=== PATIENT | female | born 1970 | race African-American/Black ===

== ENCOUNTER 2019-01-02 20:07 | Emergency (ER) | payer MEDICAID ==
[~2019-01-02] VITALS: Ht 162.6 cm; Wt 59.0 kg
[2019-01-02 20:12] VITALS: BP 158/90
== END 2019-01-02 22:38 | disposition left against medical advice (07) ==
LOC: ER 20:07
DX: Z53.21 Procedure and treatment not carried out due to patient leaving prior to being seen by health care provider (principal)

== ENCOUNTER 2019-06-12 10:13 | Inpatient (IN) | payer MEDICAID ==
[~2019-06-12] VITALS: Ht 160 cm; Wt 49.9 kg
[2019-06-12] MEDS ORDERED: ASPIRIN 81MG TABLET PO ONE (10:30)
[2019-06-12 11:39] LABS: BASOPHILS % 0.9 % (0.0-2.0); HEMATOCRIT. 38.6 % (36.0-48.0); HEMOGLOBIN. 13.3 g/dL (12.0-16.0); LYMPHOCYTES % 21.2 % (20.0-50.0); MEAN CORPUSCULAR HEMOGLOBIN 35.1 pg (28.0-32.0); MEAN CORPUSCULAR VOLUME 101.8 fL (81.0-99.0); NEUTROPHILS % 65.9 % (40.0-76.0); PLATELET 243 x1000/uL (130-400); RED BLOOD CELL COUNT 3.79 mill/uL (4.2-5.4); RED CELL DISTRIBUTION WIDTH 14.6 % (11.6-14.6)
[2019-06-12 11:42] LABS: CHLORIDE 105 mEq/L (98-107)
[2019-06-12] MEDS: NITROGLYCERIN 0.4MG TABLET SL SL PRN ×2 (11:45→12:35)
[2019-06-12 11:46] LABS: ETHANOL BLOOD < 10 mg/dL
[2019-06-12] MEDS ORDERED: NITROGLYCERIN 0.1MG/HR PATCH TOP ONE (12:45)
[2019-06-12] MEDS ORDERED: ENOXAPARIN 60MG/0.6ML SYR SUBCUT ONE (12:45)
[2019-06-12] MEDS ORDERED: DICYCLOMINE 10 MG/5 ML ORAL SYR PO STA (14:51)
[2019-06-12] MEDS ORDERED: MAGNESIUM/ALUMINUM HYDROXIDE/SIMETHICONE 30ML UDC PO STA (14:51)
[2019-06-12] MEDS ORDERED: VISCOUS LIDOCAINE 2% 15 ML UDC PO STA (14:51)
[2019-06-12] MEDS ORDERED: GUAIFENESIN 200MG/10ML SUGAR FREE UDC PO PRN (15:15)
[2019-06-12] MEDS ORDERED: ONDANSETRON HCL 4MG/2ML INJ IV PRN (15:15)
[2019-06-12] MEDS ORDERED: CLONIDINE 0.1MG TABLET PO PRN (15:15)
[2019-06-12] MEDS ORDERED: ACETAMINOPHEN 325MG TABLET PO PRN ×2 (15:15)
[2019-06-12] MEDS ORDERED: IPRATROPIUM/ALBUTEROL 0.5-3(2.5)MG/3ML NEB NEB PRN (15:15)
[2019-06-12] MEDS ORDERED: MAGNESIUM/ALUMINUM HYDROXIDE/SIMETHICONE 30ML UDC PO PRN (15:15)
[2019-06-12] MEDS ORDERED: NITROGLYCERIN 0.4MG TABLET SL SL PRN (15:15)
[2019-06-12] MEDS ORDERED: LORAZEPAM 0.5MG TABLET PO PRN (15:15)
[2019-06-12] MEDS ORDERED: DOCUSATE SODIUM 100MG CAPSULE PO PRN (15:15)
[2019-06-12] MEDS ORDERED: ENOXAPARIN 40MG/0.4ML SYR SUBCUT SCH (15:15)
[2019-06-12] MEDS: KETOROLAC 15MG/ML VIAL IV PRN (18:34)
[2019-06-12 23:07] LABS: CREATINE KINASE MB FRACTION 20.9 ng/mL (0.5-3.6)
[2019-06-12 23:49] LABS: *AMPHETAMINES SCREEN URINE NEGATIVE (NEGATIVE); *BARBITURATES SCREEN URINE NEGATIVE (NEGATIVE); *BENZODIAZEPINES SCREEN URINE NEGATIVE (NEGATIVE); METHADONE URINE SCREEN NEGATIVE (NEGATIVE); OPIATES URINE SCREEN NEGATIVE (NEGATIVE)
[2019-06-12 23:58] LABS: *COCAINE SCREEN URINE PRESUMTIVE POSITIVE (NEGATIVE); CANNABINOID URINE SCREEN PRESUMTIVE POSITIVE (NEGATIVE); PHENCYCLIDINE URINE SCREEN PRESUMTIVE POSITIVE (NEGATIVE)
[2019-06-13] MEDS: FAMOTIDINE 20MG TABLET PO SCH ×3 (00:26→20:25)
[2019-06-13] MEDS: ZOLPIDEM TARTRATE 5MG TABLET PO PRN ×2 (02:02→20:25)
[2019-06-13] MEDS: KETOROLAC 15MG/ML VIAL IV PRN (02:03)
[2019-06-13 09:40] LABS: CREATINE KINASE MB FRACTION 18.1 ng/mL (0.5-3.6)
[2019-06-13] MEDS ORDERED: ENOXAPARIN 60MG/0.6ML SYR SUBCUT NR (11:00)
[2019-06-13 13:52] VITALS: BP 166/88
[2019-06-13 13:56] VITALS: BP 166/88
[2019-06-13 16:00] VITALS: BP 121/66
[2019-06-13] MEDS: LISINOPRIL 20MG TABLET PO SCH ×2 (16:00→20:25)
[2019-06-13] MEDS: ASPIRIN 325MG EC TABLET PO SCH (16:00)
[2019-06-13] MEDS: AMLODIPINE 10MG TABLET PO SCH (16:00)
[2019-06-13] MEDS: NITROGLYCERIN OINT 1GM/INCH UDPKT TD SCH ×3 (16:01→23:10)
[2019-06-13] MEDS: ENOXAPARIN 60MG/0.6ML SYR SUBCUT SCH ×2 (16:02→23:10)
[2019-06-13 18:00] VITALS: BP 136/66
[2019-06-13 20:00] VITALS: BP 128/76
[2019-06-13] MEDS ORDERED: ATORVASTATIN CALCIUM 10MG TABLET PO SCH ×2 (21:00)
[2019-06-13 22:00] VITALS: BP 135/84
[2019-06-14] VITALS (8 sets, daily range): BP systolic 111–143; BP diastolic 70–91
[2019-06-14] MEDS: NITROGLYCERIN OINT 1GM/INCH UDPKT TD SCH (04:20)
[2019-06-14 06:48] LABS: BASOPHILS % 0.9 % (0.0-2.0); EOSINOPHILS % 1.7 % (0.0-5.0); HEMATOCRIT. 37.5 % (36.0-48.0); LYMPHOCYTES % 26.1 % (20.0-50.0); MEAN CORPUSCULAR HEMOGLOBIN 35.1 pg (28.0-32.0); MEAN CORPUSCULAR VOLUME 101.5 fL (81.0-99.0); MONOCYTES % 10.6 % (2.0-8.0); NEUTROPHILS % 60.7 % (40.0-76.0); PLATELET 249 x1000/uL (130-400); RED BLOOD CELL COUNT 3.69 mill/uL (4.2-5.4); RED CELL DISTRIBUTION WIDTH 13.9 % (11.6-14.6)
[2019-06-14 06:56] LABS: CHLORIDE 103 mEq/L (98-107)
[2019-06-14 07:04] LABS: CREATINE KINASE 111 IU/L (26-192)
[2019-06-14 07:07] LABS: CREATINE KINASE MB FRACTION 3.8 ng/mL (0.5-3.6)
[2019-06-14] MEDS: ASPIRIN 325MG EC TABLET PO SCH (08:56)
[2019-06-14] MEDS: AMLODIPINE 10MG TABLET PO SCH (08:56)
[2019-06-14] MEDS: FAMOTIDINE 20MG TABLET PO SCH (08:57)
[2019-06-14] MEDS: LISINOPRIL 20MG TABLET PO SCH (08:57)
[2019-06-14] MEDS: KETOROLAC 15MG/ML VIAL IV PRN (10:54)
[2019-06-14] MEDS ORDERED: SUCRALFATE 1 G/10 ML UDC PO SCH (11:50)
== END 2019-06-14 13:50 | disposition home or self-care (01) | DRG 816 ==
LOC: ER 10:22 → 3WST 14:15 → ENRESERV 06-13 07:07 → CANRESERV 06-13 07:07 → EDBEDREQSVC 06-13 10:32 → ENRESERV 06-13 11:29 → 3WST 06-13 13:50
PROVIDERS: ADMIT Internal Medicine; ATTEND Internal Medicine
DX: T40.5X1A Poisoning by cocaine, accidental (unintentional), initial encounter (principal); I21.4 Non-ST elevation (NSTEMI) myocardial infarction; E44.1 Mild protein-calorie malnutrition; E87.1 Hypo-osmolality and hyponatremia; I20.1 Angina pectoris with documented spasm; I11.0 Hypertensive heart disease with heart failure; I50.30 Unspecified diastolic (congestive) heart failure; F14.10 Cocaine abuse, uncomplicated; F10.10 Alcohol abuse, uncomplicated; F16.10 Hallucinogen abuse, uncomplicated; F32.9 Major depressive disorder, single episode, unspecified; Z79.899 Other long term (current) drug therapy; Z91.11 Patient's noncompliance with dietary regimen; Z91.14 Patient's other noncompliance with medication regimen; Y92.89 Other specified places as the place of occurrence of the external cause; Z71.41 Alcohol abuse counseling and surveillance of alcoholic
CPT/HCPCS: 36415; 71045; 80053; 80061; 80305; 80320; 82550; 82553; 83036; 83735; 83880; 84443; 84484; 85025; 85379; 93005; 93306; 93970; 99291; J1650; J1885; J2405; G0480

== ENCOUNTER 2019-09-06 08:56 | Inpatient (IN) | payer MEDICAID ==
[~2019-09-06] VITALS: Ht 160 cm; Wt 49.9 kg
[2019-09-06] MEDS ORDERED: MORPHINE SULFATE 4 MG/ML CPJ (NOT FOR IM USE) IV ONE (09:30)
[2019-09-06 09:46] LABS: BASOPHILS % 0.7 % (0.0-2.0); EOSINOPHILS % 1.6 % (0.0-5.0); HEMATOCRIT. 36.4 % (36.0-48.0); HEMOGLOBIN. 12.7 g/dL (12.0-16.0); MEAN CORPUSCULAR HEMOGLOBIN 35.3 pg (28.0-32.0); MEAN CORPUSCULAR VOLUME 101.1 fL (81.0-99.0); MONOCYTES % 10.9 % (2.0-8.0); NEUTROPHILS % 62.8 % (40.0-76.0); PLATELET 328 x1000/uL (130-400); RED CELL DISTRIBUTION WIDTH 14.9 % (11.6-14.6)
[2019-09-06 09:56] LABS: CHLORIDE 102 mEq/L (98-107)
[2019-09-06 10:06] LABS: HCG SCREEN NEGATIVE
[2019-09-06 13:10] LABS: *BENZODIAZEPINES SCREEN URINE NEGATIVE (NEGATIVE); METHADONE URINE SCREEN NEGATIVE (NEGATIVE); OPIATES URINE SCREEN NEGATIVE (NEGATIVE)
[2019-09-06 13:11] LABS: *BARBITURATES SCREEN URINE NEGATIVE (NEGATIVE)
[2019-09-06 13:12] LABS: *AMPHETAMINES SCREEN URINE NEGATIVE (NEGATIVE)
[2019-09-06 13:15] LABS: *COCAINE SCREEN URINE PRESUMTIVE POSITIVE (NEGATIVE); CANNABINOID URINE SCREEN PRESUMTIVE POSITIVE (NEGATIVE); PHENCYCLIDINE URINE SCREEN PRESUMTIVE POSITIVE (NEGATIVE)
[2019-09-06] MEDS ORDERED: ONDANSETRON HCL 4MG/2ML INJ IV PRN (13:30)
[2019-09-06] MEDS ORDERED: TRAZODONE HCL 50MG TABLET PO PRN (13:30)
[2019-09-06] MEDS ORDERED: CLONIDINE 0.1MG TABLET PO PRN (13:30)
[2019-09-06] MEDS ORDERED: NITROGLYCERIN 0.4MG TABLET SL SL PRN (13:30)
[2019-09-06] MEDS ORDERED: HYDRALAZINE 20MG/ML VIAL IV PRN (13:30)
[2019-09-06] MEDS ORDERED: ACETAMINOPHEN 325MG TABLET PO PRN (13:30)
[2019-09-06] MEDS: NITROGLYCERIN OINT 1GM/INCH UDPKT TD SCH ×2 (14:49→23:10)
[2019-09-06] MEDS: ENOXAPARIN 40MG/0.4ML SYR SUBCUT SCH (15:16)
[2019-09-06] MEDS ORDERED: HEPARIN 5000 UNITS/ML VIAL SUBCUT SCH (21:00)
[2019-09-06] MEDS: ASPIRIN 81MG EC TABLET PO SCH (21:09)
[2019-09-06] MEDS: AMLODIPINE 2.5MG TABLET PO SCH (21:09)
[2019-09-06] MEDS: ATORVASTATIN CALCIUM 40MG TABLET PO SCH (21:09)
[2019-09-06 23:00] VITALS: BP 127/52
[2019-09-06 23:56] VITALS: BP 127/52
[2019-09-07] MEDS ORDERED: ISOS10TA2 PO (00:04)
[2019-09-07] MEDS ORDERED: LOVA10TA54 PO (00:04)
[2019-09-07] MEDS ORDERED: ASPI-1497 PO (00:04)
[2019-09-07] MEDS: NITROGLYCERIN OINT 1GM/INCH UDPKT TD SCH ×3 (06:00→21:12)
[2019-09-07 06:12] LABS: BASOPHILS % 0.7 % (0.0-2.0); EOSINOPHILS % 2.1 % (0.0-5.0); HEMATOCRIT. 35.5 % (36.0-48.0); HEMOGLOBIN. 12.1 g/dL (12.0-16.0); LYMPHOCYTES % 28.3 % (20.0-50.0); MEAN CORPUSCULAR HEMOGLOBIN 34.6 pg (28.0-32.0); MEAN CORPUSCULAR VOLUME 101.2 fL (81.0-99.0); MEAN PLATELET VOLUME 8.7 fl (7.4-10.4); MONOCYTES % 8.9 % (2.0-8.0); PLATELET 322 x1000/uL (130-400); RED BLOOD CELL COUNT 3.51 mill/uL (4.2-5.4); RED CELL DISTRIBUTION WIDTH 14.8 % (11.6-14.6)
[2019-09-07 06:27] LABS: CHLORIDE 103 mEq/L (98-107)
[2019-09-07 06:34] LABS: LDL CHOLESTEROL 68 mg/dL (5-100)
[2019-09-07 06:35] LABS: HDL CHOLESTEROL 75 mg/dL (40-59)
[2019-09-07 08:00] VITALS: BP 109/78
[2019-09-07] MEDS: AMLODIPINE 2.5MG TABLET PO SCH ×2 (09:00→21:11)
[2019-09-07] MEDS: ASPIRIN 81MG EC TABLET PO SCH (09:16)
[2019-09-07 13:00] VITALS: BP 131/80
[2019-09-07] MEDS: ENOXAPARIN 40MG/0.4ML SYR SUBCUT SCH (14:45)
[2019-09-07 16:00] VITALS: BP 124/80
[2019-09-07 20:00] VITALS: BP 141/86
[2019-09-07] MEDS: ATORVASTATIN CALCIUM 40MG TABLET PO SCH (21:11)
[2019-09-08] VITALS: BP 124/73
[2019-09-08 04:00] VITALS: BP 139/85
[2019-09-08] MEDS: NITROGLYCERIN OINT 1GM/INCH UDPKT TD SCH ×2 (05:23→13:00)
[2019-09-08 06:58] LABS: BASOPHILS % 0.4 % (0.0-2.0); EOSINOPHILS % 1.7 % (0.0-5.0); HEMOGLOBIN. 12.9 g/dL (12.0-16.0); LYMPHOCYTES % 19.7 % (20.0-50.0); MEAN CORPUSCULAR HEMOGLOBIN 34.5 pg (28.0-32.0); MONOCYTES % 8.7 % (2.0-8.0); NEUTROPHILS % 69.5 % (40.0-76.0); PLATELET 316 x1000/uL (130-400); RED BLOOD CELL COUNT 3.73 mill/uL (4.2-5.4); RED CELL DISTRIBUTION WIDTH 14.8 % (11.6-14.6)
[2019-09-08 07:06] LABS: CHLORIDE 103 mEq/L (98-107)
[2019-09-08 08:00] VITALS: BP 123/89
[2019-09-08] MEDS: ASPIRIN 81MG EC TABLET PO SCH (08:49)
[2019-09-08] MEDS: AMLODIPINE 2.5MG TABLET PO SCH (08:49)
[2019-09-08 12:00] VITALS: BP 149/81
[2019-09-08 13:22] VITALS: BP 149/81
[2019-09-08] MEDS: ENOXAPARIN 40MG/0.4ML SYR SUBCUT SCH (14:00)
== END 2019-09-08 15:15 | disposition home or self-care (01) | DRG 190 ==
LOC: ER 08:56 → ENRESERV 21:04 → 6WST 22:18
PROVIDERS: ADMIT Internal Medicine; ATTEND Internal Medicine
DX: I21.4 Non-ST elevation (NSTEMI) myocardial infarction (principal); G92 Toxic encephalopathy; I42.9 Cardiomyopathy, unspecified; I20.1 Angina pectoris with documented spasm; I16.1 Hypertensive emergency; F16.10 Hallucinogen abuse, uncomplicated; I34.0 Nonrheumatic mitral (valve) insufficiency; I25.2 Old myocardial infarction; F12.90 Cannabis use, unspecified, uncomplicated; F14.10 Cocaine abuse, uncomplicated; F10.10 Alcohol abuse, uncomplicated; I10 Essential (primary) hypertension; Z79.899 Other long term (current) drug therapy; Z71.51 Drug abuse counseling and surveillance of drug abuser
CPT/HCPCS: 36415; 71045; 80053; 80061; 80305; 83036; 83735; 83880; 84484; 84703; 85025; 93005; 93306; 99285; J0360; J1650; J2270

== ENCOUNTER 2020-03-05 17:27 | Emergency (ER) | payer MEDICAID ==
[~2020-03-05] VITALS: Ht 157.5 cm; Wt 55.0 kg
[2020-03-05 17:27] VITALS: BP 171/107
[~2020-03-05 17:27] MED LIST: ASPI-1497 PO; ISOS10TA2 PO; LOVA10TA54 PO
== END 2020-03-05 18:34 | disposition home or self-care (01) ==
LOC: ER 17:27
DX: F10.129 Alcohol abuse with intoxication, unspecified (principal); F14.10 Cocaine abuse, uncomplicated; Z88.6 Allergy status to analgesic agent; Z79.82 Long term (current) use of aspirin; Y92.89 Other specified places as the place of occurrence of the external cause; Y90.9 Presence of alcohol in blood, level not specified
CPT/HCPCS: 99283